=== PATIENT | male | born 1975 | race Caucasian/White ===

== ENCOUNTER 2021-03-15 11:05 | Emergency (ER) | payer SELFPAY ==
[2021-03-15] MEDS ORDERED: Dexamethasone 10 MG/ML VIAL ONE (11:45)
[2021-03-15] MEDS ORDERED: Albuterol 200 PUFF (6.7GM INHALER) ONE (11:46)
== END 2021-03-15 12:10 | disposition home or self-care (01) ==
LOC: BURERS 11:05
DX: J18.9 Pneumonia, unspecified organism (principal); J98.01 Acute bronchospasm
CPT/HCPCS: 71045; J1100

== ENCOUNTER 2021-08-16 11:01 | Emergency (ER) | payer SELFPAY ==
[2021-08-16] MEDS ORDERED: Cyclobenzaprine 10 MG TAB ONE (11:47)
== END 2021-08-16 11:50 | disposition home or self-care (01) ==
LOC: BURERS 11:01
DX: M62.838 Other muscle spasm (principal)
CPT/HCPCS: 99283